=== PATIENT | female | born 1985 | race Caucasian/White ===

== ENCOUNTER 2017-03-05 09:15 | Emergency (ER) | payer SELFPAY ==
[~2017-03-05] VITALS: Ht 160 cm; Wt 65.0 kg
[2017-03-05 09:31] VITALS: TEMP 36.9; Ht 160 cm; Wt 65.0 kg
[2017-03-05] MEDS ORDERED: MoRPHine SULFATE 10 MG/ML CARP/VIAL IV STA (10:51)
[2017-03-05] MEDS ORDERED: ONDANSETRON INJ 2 MG/ML 2 ML VIAL IV STA (10:51)
[2017-03-05] MEDS ORDERED: SODIUM CHLORIDE 0.9% 1000ML 1,000 ML IV STA (10:51)
[2017-03-05 11:18] VITALS: O2SAT 98
[2017-03-05 11:25] LABS: BASO % 0.2 %; BASO ABS # 0.02 K/uL (0-0.2); COMPLETE YES; HEMATOCRIT 40.2 % (37-47); IG% 0.3 %; LYMPH % 28.7 %; LYMPH ABS # 2.78 K/uL (1.2-3.4); MEAN CELL VOLUME 90.3 fL (80-100); MEAN CORPUSCULAR HGB CONC 34.3 g/dl (32-36); MEAN PLATELET VOLUME 11.3 fL (7.4-10.4); MONO % 7.8 %; PLATELET COUNT 291 K/uL (130-400); RED BLOOD COUNT 4.45 M/uL (4.2-5.4); WHITE BLOOD COUNT 9.67 K/uL (4.8-10.8)
[2017-03-05 11:36] LABS: URINE APPEARANCE CLEAR (CLEAR); URINE BILIRUBIN NEG (NEG); URINE COLOR YELLOW; URINE NITRITE NEG (NEG); URINE PH 7.5 (4.5-7.5); URINE SPECIFIC GRAVITY 1.012 (1.000-1.030); UROBILINOGEN NEG (NEG); ZZUR CULT IF INDIC CLEAN CATCH NO
[2017-03-05 11:37] LABS: MANUAL MICROSCOPIC REQUIRED? NO; REVIEW REQ? NO
[2017-03-05 11:44] LABS: ALT/SGPT 18 U/L (12-78); AST/SGOT 13 U/L (15-37); BLOOD UREA NITROGEN 7 mg/dl (7-18); BUN/CREATININE RATIO 11.6 (10-20); CALCIUM 8.7 mg/dl (8.5-10.1); CARBON DIOXIDE 23 mmol/L (21-32); CHLORIDE 110 mmol/L (98-107); CREATININE 0.64 mg/dl (0.60-1.20); GLUCOSE 80 mg/dl (70-99); SODIUM 140 mmol/L (136-145)
[2017-03-05 11:47] LABS: ALKALINE PHOSPHATASE 80 U/L (45-117)
[2017-03-05] MEDS ORDERED: OPTIRAY 320 IV PRN (12:30)
--- NOTE | 2017-03-05 12:51 | DIAGNOSTIC IMAGING REPORT ---
ABD/PELVIS IV CONTRAST ONLY HISTORY: 31 years-old Female r flank pain acute right-sided flank pain with nausea COMPARISON: None available TECHNIQUE: Multiple axial CT images of the abdomen and pelvis were obtained following the intravenous administration of 94 mL Optiray 320. A dose lowering technique was used consistent with the principals of ALINA. FINDINGS: Minimal dependent bibasilar atelectasis. No pneumoperitoneum. Imaged inferior cardiac chambers are unremarkable. The liver, gallbladder, spleen, pancreas and adrenal glands are within normal limits. No intrahepatic biliary ductal dilation. Portal vein is patent. Kidneys, ureters and urinary bladder are unremarkable. Uterus is within normal limits. Mild to moderate amount of free pelvic fluid is present with a peripherally enhancing cystic structure of the right adnexum measuring 1.9 x 1.7 cm. The left adnexum is unremarkable. Abdominal aorta is normal in both course and caliber. No bulky retroperitoneal adenopathy. There is no bowel obstruction or focal bowel wall thickening. Appendix appears normal. Small fat filled periumbilical hernia, diastases 10 mm. Bones appear intact. IMPRESSION: 1. Peripherally enhancing centrally cystic structure of the right adnexum, 1.9 x 1.7 cm suggests involuting follicle. Mild to moderate associated free pelvic fluid is likely reactive. Correlate with pelvic ultrasound. 2. Normal appendix. The above report was generated using voice recognition software. It may contain grammatical, syntax or spelling errors. Electronically signed by: Chalo Flores M.D. 03/05/2017 12:50 PM Dictated Date/Time: 03/05/2017 12:45 PM
[2017-03-05 13:29] VITALS: BP 104/72; PULSE 67
--- NOTE | 2017-03-05 16:55 | EMERGENCY ROOM VISIT NOTE ---
History Report prepared by Prema: Travis Riley Under the Supervision of: Dr. Jaguar Garcia D.O. First contact with patient: 10:29 Chief Complaint: FLANK PAIN Stated Complaint: PAIN IN SIDE History of Present Illness The patient is a 31 year old female who presents to the Emergency Room with complaints of constant right flank pain beginning yesterday. Her pain began more in the front, and has moved towards her back. She has a history of a hysterectomy, and has had her cervix removed. The patient states that she had the hysterectomy due to severe endometriosis. She denies any urinary symptoms, numbness, or weakness. She notes that she had some abnormal vaginal bleeding last week, but none this week. The patient has no history of kidney stones. Her pain is worsened with movement. She states that she had difficulty sleeping last night. Patient denies any chest pain or shortness of breath. Source of History: patient Onset: Yesterday Position: other (right flank) Timing: constant Modifying Factors (Worsening): movement Associated Symptoms: No urinary symptoms, No weakness, No numbness Note: Additional symptoms: vaginal bleeding last week. Review of Systems See HPI for pertinent positives & negatives. A total of 10 systems reviewed and were otherwise negative. Past Medical & Surgical Medical Problems: (1) No Known Active Medical Problems Surgical Problems: (1) H/O: hysterectomy (2) S/P removal of cervix Family History No pertinent family history stated. Social History Smoking Status: Former Smoker Marital Status: Current/Historical Medications No Active Prescriptions or Reported Meds Allergies Coded Allergies: No Known Allergies (Unverified , 03/05/17) Physical Exam Vital Signs Date Time Temp Pulse Resp B/P (MAP) Pulse Ox O2 Delivery O2 Flow Rate FiO2 03/05/17 13:29 67 20 104/72 03/05/17 11:18 75 18 114/76 98 Room Air 03/05/17 09:31 36.9 81 18 128/82 98 Room Air Physical Exam GENERAL: Sitting up in bed, holding right flank, in no acute distress. EYE EXAM: normal conjunctiva. OROPHARYNX: no exudate, no erythema, lips, buccal mucosa, and tongue normal and mucous membranes are moist NECK: supple, no nuchal rigidity, no adenopathy, non-tender LUNGS: Clear to auscultation. Normal chest wall mechanics HEART: no murmurs, S1 normal and S2 normal ABDOMEN: abdomen soft, non-tender, normo-active bowel sounds, no masses, no rebound or guarding. BACK: Back is symmetrical on inspection and there is no deformity, no midline tenderness. Tenderness to the right lower lumbar paraspinal region. SKIN: no rashes and no bruising UPPER EXTREMITIES: upper extremities are grossly normal. LOWER EXTREMITIES: No pitting edema. NEURO EXAM: Normal sensorium, cranial nerves II-XII grossly intact, normal speech, no gross weakness of arms, no gross weakness of legs. No drift. Finger to nose intact. Gross sensation intact. Medical Decision & Procedures ER Provider Diagnostic Interpretation: Radiology results as stated below per my review and the radiologist's interpretation: ABD/PELVIS IV CONTRAST ONLY FINDINGS: Minimal dependent bibasilar atelectasis. No pneumoperitoneum. Imaged inferior cardiac chambers are unremarkable. The liver, gallbladder, spleen, pancreas and adrenal glands are within normal limits. No intrahepatic biliary ductal dilation. Portal vein is patent. Kidneys, ureters and urinary bladder are unremarkable. Uterus is within normal limits. Mild to moderate amount of free pelvic fluid is present with a peripherally enhancing cystic structure of the right adnexum measuring 1.9 x 1.7 cm. The left adnexum is unremarkable. Abdominal aorta is normal in both course and caliber. No bulky retroperitoneal adenopathy. There is no bowel obstruction or focal bowel wall thickening. Appendix appears normal. Small fat filled periumbilical hernia, diastases 10 mm. Bones appear intact. IMPRESSION: 1. Peripherally enhancing centrally cystic structure of the right adnexum, 1.9 x 1.7 cm suggests involuting follicle. Mild to moderate associated free pelvic fluid is likely reactive. Correlate with pelvic ultrasound. 2. Normal appendix. The above report was generated using voice recognition software. It may contain grammatical, syntax or spelling errors. Electronically signed by: Chalo Flores M.D. 03/05/2017 12:50 PM Laboratory Results 03/05/17 10:55 Red Blood Count 4.45, Mean Corpuscular Volume 90.3, Mean Corpuscular Hemoglobin 31.0, Mean Corpuscular Hemoglobin Concent 34.3, Mean Platelet Volume 11.3, Neutrophils (%) (Auto) 61.0, Lymphocytes (%) (Auto) 28.7, Monocytes (%) (Auto) 7.8, Eosinophils (%) (Auto) 2.0, Basophils (%) (Auto) 0.2, Neutrophils # (Auto) 5.90, Lymphocytes # (Auto) 2.78, Monocytes # (Auto) 0.75, Eosinophils # (Auto) 0.19, Basophils # (Auto) 0.02 03/05/17 10:55 Test 03/05/17 10:30 03/05/17 10:55 03/05/17 11:10 Urine Test NEG (NEG) White Blood Count 9.67 K/uL (4.8-10.8) Red Blood Count 4.45 M/uL (4.2-5.4) Hemoglobin 13.8 g/dL (12.0-16.0) Hematocrit 40.2 % (37-47) Mean Corpuscular Volume 90.3 fL (80-100) Mean Corpuscular Hemoglobin 31.0 pg (25-34) Mean Corpuscular Hemoglobin Concent 34.3 g/dl (32-36) Platelet Count 291 K/uL (130-400) Mean Platelet Volume 11.3 fL (7.4-10.4) Neutrophils (%) (Auto) 61.0 % Lymphocytes (%) (Auto) 28.7 % Monocytes (%) (Auto) 7.8 % Eosinophils (%) (Auto) 2.0 % Basophils (%) (Auto) 0.2 % Neutrophils # (Auto) 5.90 K/uL (1.4-6.5) Lymphocytes # (Auto) 2.78 K/uL (1.2-3.4) Monocytes # (Auto) 0.75 K/uL (0.11-0.59) Eosinophils # (Auto) 0.19 K/uL (0-0.5) Basophils # (Auto) 0.02 K/uL (0-0.2) RDW Standard Deviation 41.5 fL (36.4-46.3) RDW Coefficient of Variation 12.6 % (11.5-14.5) Immature Granulocyte % (Auto) 0.3 % Immature Granulocyte # (Auto) 0.03 K/uL (0.00-0.02) Anion Gap 7.0 mmol/L (3-11) Est Creatinine Clear Calc Drug Dose 117.6 ml/min Estimated GFR () 139.8 Estimated GFR (Non- 120.6 BUN/Creatinine Ratio 11.6 (10-20) Calcium Level 8.7 mg/dl (8.5-10.1) Total Bilirubin 0.2 mg/dl (0.2-1) Direct Bilirubin < 0.1 mg/dl (0-0.2) Aspartate Amino Transf (AST/SGOT) 13 U/L (15-37) Alanine Aminotransferase (ALT/SGPT) 18 U/L (12-78) Alkaline Phosphatase 80 U/L (45-117) Total Protein 7.7 gm/dl (6.4-8.2) Albumin 3.7 gm/dl (3.4-5.0) Lipase 183 U/L (73-393) Urine Color YELLOW Urine Appearance CLEAR (CLEAR) Urine pH 7.5 (4.5-7.5) Urine Specific [place] 1.012 (1.000-1.030) Urine Protein NEG (NEG) Urine Glucose (UA) NEG (NEG) Urine Ketones NEG (NEG) Urine Occult Blood NEG (NEG) Urine Nitrite NEG (NEG) Urine Bilirubin NEG (NEG) Urine Urobilinogen NEG (NEG) Urine Leukocyte Esterase NEG (NEG) Urine WBC (Auto) 0 /hpf (0-5) Urine RBC (Auto) 0-4 /hpf (0-4) Urine Hyaline Casts (Auto) 0 /lpf (0-5) Urine Epithelial Cells (Auto) 10-20 /lpf (0-5) Urine Bacteria (Auto) NEG (NEG) Laboratory results per my review. Medications Administered Medications (Trade) Dose Ordered Sig/Kashif Route Start Time Stop Time Status Last Admin Dose Admin Sodium Chloride 1,000 ml @ 999 mls/hr Q1H1M STAT IV 03/05/17 10:51 03/05/17 11:51 DC 03/05/17 11:10 999 MLS/HR Ondansetron HCl (Zofran Inj) 4 mg NOW STAT IV 03/05/17 10:51 03/05/17 10:53 DC 03/05/17 11:12 4 MG Morphine Sulfate (MoRPHine SULFATE INJ) 6 mg NOW STAT IV 03/05/17 10:51 03/05/17 10:53 DC 03/05/17 11:13 6 MG ED Course ED COURSE: Vital signs were reviewed and appeared normal. The patients medical record was reviewed The above diagnostic studies were performed and reviewed. ED treatments and interventions as stated above. 1041: The patient was evaluated in room A3. A complete history and physical examination was performed. 1051: Ordered Morphine Sulfate 6 mg IV, Zofran Inj 4 mg IV, Sodium Chloride 1000 ml @ 999 mls/hr IV. 1130: I reassessed the patient. She feels better. I updated her on her test results. 1300: Upon reevaluation, the patient is resting comfortably. She declined pelvic examination. I discussed my findings with the patient and she understands and agrees with the treatment plan. Based on the patients age, coexisting illnesses, exam and lab findings the decision to treat as an outpatient was made. The patient remained stable while under my care. The patient appeared well at the time of discharge. Medical Decision Differential diagnoses includes but is not limited to gastritis, peptic ulcer disease, GERD, gallbladder disease, pancreatitis, small bowel obstruction, acute coronary syndrome, pericarditis, ischemic bowel, irritable bowel disease, irritable bowel syndrome, appendicitis, diverticulitis, malignancy, hernia, urinary tract infection, torsion, perforation, trauma, infectious. Patient is a 31-year-old female who presents to ER for right flank pain which started yesterday. Admits to complete hysterectomy. Still has her gallbladder and appendix. Minimal tenderness in the right lower lumbar paraspinal region. CBC all BMP, LFTs, bilirubin lipase was unremarkable. UA was negative. was negative. CT of the abdomen and pelvis shows no acute pathology with the exception of a right ovarian cyst. Patient was updated in regards to his findings. She declined pelvic. She was discharged to follow-up with PCP with her pain likely being secondary to right ovarian cysts. No signs of torsion on CT. Discussed with Pt concerning signs and symptoms to watch out for. Pt was instructed to follow up with their PCP and discussed with the patient their option to return to the ED at anytime for persistent or worsening symptoms. The appropriate anticipatory guidance and out-patient management, including indications for return to the emergency department, were explained at length to the patient and understood. Medication Reconcilliation Current Medication List: was personally reviewed by me Blood Pressure Screening Patient's blood pressure: Normal blood pressure Blood pressure disposition: Did not require urgent referral Impression Primary Impression: Ovarian cyst Scribe Attestation The scribe's documentation has been prepared under my direction and personally reviewed by me in its entirety. I confirm that the note above accurately reflects all work, treatment, procedures, and medical decision making performed by me. Departure Information Dispostion Home / Self-Care Prescriptions No Active Prescriptions or Reported Meds Referrals No Doctor, Assigned (PCP) Forms HOME CARE DOCUMENTATION FORM, IMPORTANT VISIT INFORMATION Patient Instructions Cysts Ovarian, My [facility] Additional Instructions Please follow up with your primary care doctor with in the next 24 hours. Any worsening of your symptoms, please return to the ED immediately. This includes any fevers greater than 100.4, worsening pain, chest pain, shortness breath, persistent nausea, vomiting, unable to eat or drink, or any other concerning signs or symptoms from your standpoint. Please take Tylenol or Motrin as needed for pain. Problem Qualifiers Primary Impression: Ovarian cyst Laterality: right Qualified Codes: N83.201 - Unspecified ovarian cyst, right side
== END 2017-03-05 13:32 | disposition home or self-care (01) ==
LOC: C.EDB 09:17 → C.EDA 13:32
DX: N83.201 Unspecified ovarian cyst, right side (principal); Z90.710 Acquired absence of both cervix and uterus; Z87.891 Personal history of nicotine dependence